=== PATIENT | male | born 1965 | race Caucasian/White ===

== ENCOUNTER 2021-05-25 11:30 | Emergency (ER) | payer SELFPAY ==
[~2021-05-25] VITALS: Ht 165.1 cm; Wt 81.8 kg
[2021-05-25 11:47] VITALS: BP 154/98
[2021-05-25] MEDS ORDERED: PERTUSS(ACELL),DIPH,TET VAC/PF 0.5 ML SYRINGE IM. ONE (12:15)
[2021-05-25] MEDS ORDERED: LIDOCAINE 1% 10 ML VIAL PERC ONE (12:15)
[2021-05-25] MEDS ORDERED: BACITRACIN 0.9 GM PACKET OINTMENT TP ONE (12:30)
== END 2021-05-25 13:15 | disposition home or self-care (01) ==
LOC: EMS 11:39
DX: S61.411A Laceration without foreign body of right hand, initial encounter (principal); W27.0XXA Contact with workbench tool, initial encounter; Y93.89 Activity, other specified; Y92.89 Other specified places as the place of occurrence of the external cause; Y99.8 Other external cause status
CPT/HCPCS: 12002; 90471; 90715; 99283; J3490